=== PATIENT | female | born 1950 | race Caucasian/White ===

== ENCOUNTER → 2020-11-25 13:20 | Outpatient (BNVA) | payer OTHER, SELFPAY | PROVIDERS: PCP Internal Medicine; Visit Provider Anesthesiology ==

== ENCOUNTER 2023-01-25 12:55 | Outpatient (AMB) | payer OTHER, SELFPAY ==
--- NOTE | 2023-01-25 13:05 | A.OFFVIS_ITS ---
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 Patient states he has hx of RT meniscus repair. States her left knee pain has increase in the 2-3 months ago. Denies injections for her left knee. States stairs increase her pain. Denies recent injury. Patient is interested in P2P. Allergies acetaminophen [From Percocet] Allergy (Unknown, Verified 01/25/23 13:12) Unknown oxycodone [From Percocet] Allergy (Unknown, Verified 01/25/23 13:12) Unknown Sulfa (Sulfonamide Antibiotics) Allergy (Unknown, Verified 01/25/23 13:12) Unknown HPI [employer] DYER, PRP consultation for Left Knee HPI Details 72-year-old right hand dominant female karon dunaway presents in the office today, as a new patient, for an evaluation and consultation of left knee pain. The patient reports in the last 2-3 months she has had an increase in pain. She states she has an increase in pain with use of stairs. She does not recall any recent injury. The patient is interested in PRP. She confirms prior cortisone injections with no relief. Patient has a history of a right knee meniscus repair. 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 No ecchymosis, erythema, or joint effusion. ROM is 0-110 degrees. Mild tenderness to palpation at the medial and lateral joint lines. Negative Cata's. NVI. Assessment & Plan Assessment & Plan (1) Osteoarthritis of left knee: Code(s): M17.12 - Unilateral primary osteoarthritis, left knee Qualifiers: Osteoarthritis type: unspecified Qualified Code(s): M17.12 - Unilateral primary osteoarthritis, left knee (2) History of arthroplasty of right knee: Code(s): Z96.651 - Presence of right artificial knee joint Plan Ms. Sylvester is a 72-year-old right hand dominant female who presents in the office today, as a new patient, for an evaluation and consultation of left knee pain. The patient reports in the last 2-3 months she has had an increase in pain. She states she has an increase in pain with use of stairs. She does not recall any recent injury. The patient is interested in PRP. She confirms prior cortisone injections with no relief. Patient has a history of a right knee meniscus repair. Dr. Lentz was available to see the patient with me while in the office today and a collaborative treatment plan was made. We discussed the possibility of PRP injections with the patient, however at this time Dr. Lentz and I have agreed to order an MRI to further evaluate the integrity of the left knee. We also discussed the role of cortisone injections, but the patient has declined to move forward with this at this time due to having multiple in the past with no relief. She states she is not willing to having any more cortisone injections anywhere in her body. Follow up will be after the MRI is obtained, or sooner if needed. X-rays of the left knee which were obtained while in the office today and were reviewed by me, Leah Tipton PA-C, revealed no acute fracture or dislocation. Orders: Orders MR knee LT wo con Today M17.12 - Unilateral primary osteoarthritis, left knee XR knee standing BI Today M25.569 - Pain in unspecified knee XR knee LT 2V Today M25.569 - Pain in unspecified knee Patient Instructions: Scribed for Leah Tipton PA-C by Daria Dodge regional medical director, on 01/25/2023 at 1:00 pm, EST. Coding Level of Care Code New Pt Level 4 (92828) Diagnoses Osteoarthritis of left knee, unspecified osteoarthritis type M17.12 Osteoarthritis type: unspecified History of arthroplasty of right knee Z96.651
[2023-01-25 13:13] VITALS: BMI 25.7
== END 2023-01-25 14:10 | disposition home or self-care (01) ==
PROVIDERS: PCP Internal Medicine; Visit Provider Physician Assistant
DX: M17.12 Unilateral primary osteoarthritis, left knee (principal)
CPT/HCPCS: 99203

== ENCOUNTER 2023-01-25 15:57 | Outpatient (REF) | payer OTHER, SELFPAY ==
--- NOTE | ~2023-01-25 | XR_ITS ---
EXAMINATION: XR STANDING KNEE, BILATERAL XR KNEE, LEFT CLINICAL INFORMATION: Pain COMPARISON: None available. TECHNIQUE: Single view of the bilateral standing knees 2 views of the left knee FINDINGS: Status post right knee arthroplasty, grossly intact. No acute visible fracture or dislocation. Multi compartment arthritic changes of the left knee with narrowing of the medial femorotibial compartment and lateral patellofemoral compartment. Periarticular aspect along the superior margin of the patella. Joint spaces and alignment are otherwise maintained. No large knee joint effusion. Soft tissues are unremarkable. XR/XR knee LT 2V IMPRESSION: 1. Status post right knee arthroplasty, grossly intact. 2. No acute visible fracture or dislocation. 3. Multi compartment arthritic changes of the left knee.
--- NOTE | ~2023-01-25 | XR_ITS ---
EXAMINATION: XR STANDING KNEE, BILATERAL XR KNEE, LEFT CLINICAL INFORMATION: Pain COMPARISON: None available. TECHNIQUE: Single view of the bilateral standing knees 2 views of the left knee FINDINGS: Status post right knee arthroplasty, grossly intact. No acute visible fracture or dislocation. Multi compartment arthritic changes of the left knee with narrowing of the medial femorotibial compartment and lateral patellofemoral compartment. Periarticular aspect along the superior margin of the patella. Joint spaces and alignment are otherwise maintained. No large knee joint effusion. Soft tissues are unremarkable. XR/XR knee standing BI IMPRESSION: 1. Status post right knee arthroplasty, grossly intact. 2. No acute visible fracture or dislocation. 3. Multi compartment arthritic changes of the left knee.
== END 2023-01-25 15:58 | disposition home or self-care (01) ==
LOC: HO.HOSX 15:57
PROVIDERS: Visit Provider Physician Assistant
DX: M17.12 Unilateral primary osteoarthritis, left knee (principal); Z96.651 Presence of right artificial knee joint
CPT/HCPCS: 73560; 73565